=== PATIENT | male | born 1990 | race Caucasian/White ===

== ENCOUNTER 2016-07-01 13:13 | Emergency (ER) | payer BC ==
--- NOTE | 2016-07-01 14:41 | ER PHYSICIAN DOCUMENTATION ---
Physician Documentation [facility] Name:Db Larios Age:25 yrs Sex:Male :1990 Arrival Date:07/01/2016 Time:13:13 Bed5 Private MD: João Arnold Disposition: 07/01/16 14:05 Discharged to Home/Self Care. Impression: Head Laceration. - Condition is Good. - Discharge Instructions: SCALP LACERATION Stitches or [place] - LACERATION, Scalp, Brain Concussion - CONCUSSION, No Wake Up. - Medical Reconciliation form form. - Follow up: Private Physician; When: 7 days; Reason: Staple/Suture removal. - Problem is new. - Symptoms have improved. HPI: 07/01 14:53 This 25 yrs old Male presents to ER via Private Vehicle with complaints of jm Head Injury-Adult. 14:53 The patient or guardian reports a laceration. Context of injury: resulted from a direct jm blow, a falling tree. Onset: The symptom(s)/episode began/occurred 1 hour(s) ago. Associated signs and symptoms: Loss of consciousness: This patient did not experience any loss of consciousness. Pertinent negatives: the patient has not experienced a loss of conciousness, headache, nausea, neck pain, vomiting, weakness in extremities. PT had a hammock tied to a tree. The tree fell and hit him in the back of the head. . Historical: - Allergies: No known drug Allergies; - Home Meds: 1. None - PMHx: None; - PSHx: ACL repair; - Tetanus: unknown will f/u with PCP. - Ebola Screening: : Patient negative for fever greater than or equal to 101.5 degrees Fahrenheit, and additional compatible Ebola Virus Disease symptoms. Patient denies exposure to infectious person. Patient denies travel to an Ebola-affected area in the 21 days before illness onset. No symptoms or risks identified at this time. . - Immunization history: Flu Vaccine < 1 year. - Social history: Smoking status: Patient states was never smoker of tobacco. ROS: 14:53 Constitutional: Negative for fever. jm 14:53 Eyes: Negative for blurry vision. 14:53 Neck: Negative for injury or acute deformity. 14:53 Abdomen/GI: Negative for nausea, vomiting. 14:53 Skin: Positive for laceration(s). 14:53 Neuro: Negative for dizziness, headache, loss of consciousness, numbness, tingling, weakness. Exam: 14:53 Constitutional: The patient appears alert, awake, comfortable. 14:53 Head/face: Noted is a laceration(s), that is linear, 4 cm(s), of the left side of the back of head, Sinus tenderness, is not appreciated. 14:53 Eyes: Pupils: equal, round, and reactive to light and accomodation, Extraocular movements: intact throughout. 14:53 Neck: C-spine: appears grossly normal. 14:53 Neuro: Mentation: is normal, Memory: is normal, Cranial nerves: CN II- XII are normal as tested, Cerebellar function: normal finger to nose testing, Motor: strength is normal, Sensation: is normal, Gait: is steady. Vital Signs: 13:39 BP 154 / 88; Pulse 74; Resp 14; Temp 98.4(O); Pulse Ox 92% on R/A; Weight 72.57 kg; tg Height 5 ft. 8 in. (172.72 cm); Pain 3/10; 13:39 Body Mass Index 24.33 (72.57 kg, 172.72 cm) tg [place] Coma Score: 13:23 Eye Response: spontaneous(4). Verbal Response: oriented(5). Motor Response: obeys tg commands(6). Total: 15. Trauma Score (Adult): 13:20 Eye Response: spontaneous(1); Verbal Response: oriented(1); Motor Response: obeys tg commands(2); Systolic BP: > 89 mm Hg(4); Respiratory Rate: 10 to 29 per min(4); Kevon Score: 15; Trauma Score: 12 Laceration: 14:53 Wound Repair of 5cm ( 2.0in ) subcutaneous laceration to left side of the back of head. jm Distal neuro/vascular/tendon intact. Anesthesia: Wound infiltrated with 10 mls of 2% lidocaine w/ Epi. Wound prep: Wound irrigation by nurse. Skin closed with 9 1-0 [place] using Staple gun. Dressed with Open to air. Patient tolerated well. MDM: 13:17 Patient medically screened. 14:53 Differential diagnosis: Laceration of Intracranial bleed- Concussion. Neurological jm re-evaluation: normal neurological exam including cranial nerves, orientation, mentation, motor and sensory exam, cerebellar testing, GCS normal, and normal gait. Data reviewed: vital signs, nurses notes, and as a result, I will discharge patient. Counseling: I had a detailed discussion with the patient and/or guardian regarding: the historical points, exam findings, and any diagnostic results supporting the discharge/admit diagnosis, the need for outpatient follow up, with the patient's primary care provider. 07/01 14:38 Order name: Wound Care; Complete Time: 14:38 tg Dispensed Medications: No medications were administered Signatures: Abraham Barnard, RN RN tg João Jeffers MD MD jm
--- NOTE | 2016-07-01 14:41 | ER NURSING DOCUMENTATION ---
Nurse's Notes [facility] Name:Db Larios Age:25 yrs Sex:Male :1990 Arrival Date:07/01/2016 Time:13:13 Bed5 Private MD: Diagnosis:Head Laceration Presentation: 07/01 13:23 Presenting complaint: Patient states: Pt was hit in the back of the head by a falling tg tree branch. No LOC, no nausea, no headache, no vision changes. Transition of care: patient was not received from another setting of care. Mechanism of Injury: resulted from a direct blow, tree branch. 13:23 Acuity: CHAD 4 tg 13:23 Method Of Arrival: Private Vehicle tg Triage Assessment: 13:25 General: Appears in no apparent distress, Behavior is cooperative, pleasant. Pain: tg Complains of pain in scalp. Neuro: Level of Consciousness is awake, alert, Oriented to person, place, time, event, Gait is steady, Pupils are PERRLA, Denies blurred vision dizziness, headache. Cardiovascular: Capillary refill < 3 seconds. Respiratory: Respiratory effort is even, unlabored. Derm: Skin is pink, warm & dry. Injury Description: Laceration sustained to scalp is not bleeding, was sustained 2-4 hours ago. Historical: - Allergies: No known drug Allergies; - Home Meds: 1. None - PMHx: None; - PSHx: ACL repair; - Tetanus: unknown will f/u with PCP. - Ebola Screening: : Patient negative for fever greater than or equal to 101.5 degrees Fahrenheit, and additional compatible Ebola Virus Disease symptoms. Patient denies exposure to infectious person. Patient denies travel to an Ebola-affected area in the 21 days before illness onset. No symptoms or risks identified at this time. . - Immunization history: Flu Vaccine < 1 year. - Social history: Smoking status: Patient states was never smoker of tobacco. Screenin:39 Infectious Disease Risk Unable to Obtain. Abuse screen: Denies threats or abuse. Denies tg injuries from another. Nutritional screening: No deficits noted. Vital Signs: 13:39 BP 154 / 88; Pulse 74; Resp 14; Temp 98.4(O); Pulse Ox 92% on R/A; Weight 72.57 kg; tg Height 5 ft. 8 in. (172.72 cm); Pain 3/10; 13:39 Body Mass Index 24.33 (72.57 kg, 172.72 cm) tg [place] Coma Score: 13:23 Eye Response: spontaneous(4). Verbal Response: oriented(5). Motor Response: obeys tg commands(6). Total: 15. Trauma Score (Adult): 13:20 Eye Response: spontaneous(1); Verbal Response: oriented(1); Motor Response: obeys tg commands(2); Systolic BP: > 89 mm Hg(4); Respiratory Rate: 10 to 29 per min(4); Kevon Score: 15; Trauma Score: 12 ED Course: 13:15 Patient arrived in ED. ama 13:17 João Jeffers MD is Attending Physician. nita 13:23 Abraham Barnard RN is Primary Nurse. tg 13:24 Triage completed. tg 13:39 Valuables Remains with patient. tg 14:00 Assist Provider Assist provider with laceration repair on scalp that was between 2.6 to tg 7.5 cm using sofya. Set up tray. Performed by Abraham Barnard RN Dressed with Patient tolerated well. Wound care to laceration located on scalp was cleaned with Patient tolerated well. Administered Medications: No medications were administered Outcome: 14:05 Discharge ordered by . nita 14:20 Discharged to home ambulatory. tg 14:20 Condition: stable 14:20 Discharge Assessment: Patient awake, alert and oriented x 3. No cognitive and/or functional deficits noted. Patient verbalized understanding of disposition instructions. 14:20 Instructed on discharge instructions, follow up and referral plans. wound care. 14:40 Patient left the ED. tg 07/02 12:35 Discharge F/U Call: Overall Care on a scale of 1-10 with 10 being the best care, you tg rate our care as: Other comments: Pt returned to the ED this AM, concerned that a staple was coming loose. Pt was briefly examined, and one staple was loose. However, the sofya above and below were secure and the wound was still closed. Pt reassured that the loose staple would not compromise wound healing. Signatures: Abraham Barnard, RN RN tg João Jeffers MD MD jm Averdick, Andrew, Reg Reg ama
== END 2016-07-01 14:41 | disposition home or self-care (01) ==
LOC: ER 13:13
DX: S01.01XA Laceration without foreign body of scalp, initial encounter (principal); W20.8XXA Other cause of strike by thrown, projected or falling object, initial encounter; Y92.89 Other specified places as the place of occurrence of the external cause
CPT/HCPCS: 12032; 99283